=== PATIENT | male | born 1980 | race Caucasian/White ===

== ENCOUNTER 2016-04-19 07:50 | Emergency (ER) | payer BC ==
[2016-04-19 10:08] VITALS: BP 132/71
--- NOTE | 2016-04-20 20:07 | CR ---
DATE OF SERVICE: 04/19/2016 CLINICAL DATA: Knee injury. RIGHT KNEE No priors. The patella is bipartite. 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 There is a small joint effusion. No acute fracture or dislocation. No lytic or blastic bone lesions. [id number] MTDD
--- NOTE | 2016-04-21 13:32 | EDM.PDOC ---
ED HPI Trauma - General Chief Complaint: General Stated Complaint: right knee injury Time Seen by Provider: 04/19/16 08:08 Source: Reports: Patient History Limitations: Reports: No limitations - History of Present Illness INITIAL COMMENTS - FREE TEXT/NARRATIVE: This is a 36yo M here for a recent fall of his upper bunk while fishing. He fell on a friend and hurt his right knee. Occurred When: just prior to arrival Occurred Where: other Method of Injury: fall Severity: mild Pain/Injury Location: Reports: lower extremity, right Consciousness: Reports: no loss of consciousness Associated Symptoms: Reports: denies other symptoms Allergies/ADRs: Allergies No Known Allergies Allergy (Verified 04/19/16 10:07) Home Medications: Ambulatory Orders NK [No Known Home Meds] 04/19/16 [Confirmed 04/19/16] Review of Systems - Review of Systems Review Of Systems: ROS reveals no pertinent complaints other than HPI. Trauma Exam - Physical Exam Exam: See Below Exam Limited By: No limitations General Appearance: Reports: alert, WD/WN, no apparent distress Head: Reports: atraumatic, normocephalic Ears: Reports: normal external exam Nose: Reports: normal inspection Throat/Mouth: Reports: Normal inspection Neck: Reports: non-tender, full range of motion Respiratory Exam: Reports: no respiratory distress, lungs clear, normal breath sounds, no accessory muscle use Cardiovascular: Reports: normal peripheral pulses, regular rate, rhythm GI/Abdominal: Reports: normal bowel sounds, soft, non tender, no organomegaly Extremities: Reports: other (right medial knee pain, nagative varus valgus stress, negative exam except for palpation of the medial joint line) Neurologic: Reports: 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, no motor/sensory deficits Skin: Reports: Normal color, Warm/dry Course - Vital Signs Last Recorded V/S: Last Vital Signs Temp 37.1 C 04/19/16 08:00 Pulse 68 04/19/16 08:00 Resp BP 132/71 04/19/16 08:00 Pulse Ox 100 04/19/16 08:00 Departure - Departure Time of Disposition: 10:00 Disposition: Home, Self-Care 01 Condition: good Clinical Impression: Knee pain, right Qualifiers: Chronicity: acute Qualified Code(s): M25.561 - Pain in right knee Instructions: Knee Pain, Knee Sprain, [id number] Referrals: PCP,None [Primary Care Provider] - Forms: ED Department Discharge Additional Instructions: Follow up with primary care provider if you continue to have pain in knee.
== END 2016-04-19 09:15 | disposition home or self-care (01) ==
LOC: LB.ED 07:50
DX: M25.561 Pain in right knee (principal); W19.XXXA Unspecified fall, initial encounter
CPT/HCPCS: 73562-RT; 99283